=== PATIENT | female | born 1995 | race Two or more races ===

== ENCOUNTER 2019-10-30 16:37 | Emergency (ER) | payer BC ==
[2019-10-30 16:51] VITALS: BP 109/82; PULSE 71
[2019-10-30] MEDS ORDERED: HYDROmorphone 1 MG/ML Syringe IVPUSH STA (17:02)
[2019-10-30] MEDS ORDERED: Ondansetron 4 MG/2 ML SDV IVPUSH ONE ×2 (17:02→20:41)
--- NOTE | 2019-10-30 17:02 | EDM.PDOC ---
ED HPI GENERAL MEDICAL PROBLEM - General Chief Complaint: Abdominal Pain Stated Complaint: R SIDE ABD PAIN Time Seen by Provider: 10/30/19 16:48 Source of Information: Reports: Patient, RN Notes Reviewed History Limitations: Reports: No Limitations - History of Present Illness INITIAL COMMENTS - FREE TEXT/NARRATIVE: Patient is a 24-year-old female who presents to the ED for the evaluation of her right sided abdomen pain. The patient notes that she has been having some discomfort for around 2 hours, when she points to where this pain is it appears to be in her right flank area. She states when the pain started and made her sweaty and nauseous, she took a shower and the pain seemed to go away, after getting out of the shower it returned. She took 1000 mg of Tylenol for pain relief and this does not help much. She notes that the pain is stabbing and sharp in character, there is no radiation component, nothing seems to make this worse or better. She is complaining of some chills and nausea but no vomiting or diarrhea, no cough no shortness of breath, no fever, no urinary issues. Patient states she is currently on her menses and denies any chance of . Patient has had a cholecystectomy but still retains her appendix. She states she just recently set up with a primary care provider, but cannot remember her name. Right Lower Abdomen Pain Score (Numeric/FACES): 8 - Related Data Allergies Allergy/AdvReac Type Severity Reaction Status Date / Time No Known Allergies Allergy Verified 07/10/16 19:55 Home Meds: Home Meds Omeprazole 20 mg PO DAILY 07/10/16 [History] Acetaminophen/oxyCODONE [Percocet 325-5 MG] 1 each PO Q6H PRN #20 tab 10/30/19 [ Rx] Ondansetron [Zofran ODT] 4 mg PO Q8H PRN #15 tab.dis 10/30/19 [Rx] Past Medical History HEENT History: Reports: Impaired Vision, Other (See Below) Other HEENT History: wears contacts Gastrointestinal History: Reports: Cholelithiasis, Helicobacter Pylori, Pancreatitis Other Gastrointestinal History: just diagnosed with both 07/10/16 - Infectious Disease History Infectious Disease History: Reports: Chicken Pox - Past Surgical History GI Surgical History: Reports: Cholecystectomy Dermatological Surgical History: Reports: Skin Biopsy (cyst like lesion removed 10/2019 on R hand/finger) Social & Family History - Family History Family Medical History: Noncontributory - Tobacco Use Smoking Status *Q: Never Smoker Second Hand Smoke Exposure: No - Caffeine Use Caffeine Use: Reports: Coffee, Tea Other Caffeine Use: states she doesn't drink either everyday ED ROS GENERAL - Review of Systems Review Of Systems: Comprehensive ROS is negative, except as noted in HPI. ED EXAM, GI/ABD - Physical Exam Exam: See Below Exam Limited By: No Limitations General Appearance: Alert, WD/WN, No Apparent Distress (pt appears to be in mild pain, but not in any distress) Eyes: Bilateral: Normal Appearance Ears: Normal External Exam Nose: Normal Inspection Throat/Mouth: Normal Inspection, Normal Lips, Normal Teeth, Normal Gums, Normal Oropharynx, Normal Voice, No Airway Compromise Head: Atraumatic, Normocephalic Neck: Normal Inspection Respiratory/Chest: No Respiratory Distress, Lungs Clear, Normal Breath Sounds, No Accessory Muscle Use, Chest Non-Tender Cardiovascular: Normal Peripheral Pulses, Regular Rate, Rhythm, No Murmur GI/Abdominal Exam: Normal Bowel Sounds, Soft, No Distention, No Mass, Tender (R flank mainly, but midly tender in RLQ as well.) Back Exam: Normal Inspection, Full Range of Motion. No: CVA Tenderness (L), CVA Tenderness (R) Extremities: Normal Inspection, Normal Capillary Refill Neurological: Alert, Oriented, Normal Cognition, No Motor/Sensory Deficits Psychiatric: Normal Affect, Normal Mood Skin Exam: Warm, Dry, Intact, Normal Color, No Rash Course - Vital Signs Last Recorded V/S: Last Vital Signs Temp 97.6 F 10/30/19 16:48 Pulse 71 10/30/19 16:48 Resp 20 10/30/19 16:48 BP 109/82 10/30/19 16:48 Pulse Ox 100 10/30/19 16:48 - Orders/Labs/Meds Orders: Active Orders 24 hr Category Date Time Status Abdomen Pelvis w Cont [CT] Stat Exams 10/30/19 17:02 Ordered UA W/MICROSCOPIC [URIN] Stat Lab 10/30/19 17:02 Ordered Sodium Chloride 0.9% [Normal Saline] 1,000 ml Med 10/30/19 17:15 Ordered IV ASDIRECTED Sodium Chloride 0.9% [Saline Flush] Med 10/30/19 17:30 Active 10 ml FLUSH ONETIME PRN Medication Orders Sodium Chloride (Normal Saline) 1,000 mls @ 999 mls/hr IV ASDIRECTED LORENZA Last Admin: 10/30/19 17:22 Dose: 999 mls/hr Sodium Chloride (Saline Flush) 10 ml FLUSH ONETIME PRN PRN Reason: Keep Vein Open Last Admin: 10/30/19 19:02 Dose: 10 ml Labs: Laboratory Tests 10/30/19 10/30/19 10/30/19 Range/Units 17:00 17:00 17:00 WBC 13.18 H (3.98-10.04) K/mm3 RBC 5.03 (3.98-5.22) M/mm3 Hgb 14.3 D (11.2-15.7) gm/dl Hct 43.9 (34.1-44.9) % MCV 87.3 D (79.4-94.8) fl MCH 28.4 (25.6-32.2) pg MCHC 32.6 (32.2-35.5) g/dl RDW Std Deviation 43.1 (36.4-46.3) fL Plt Count 311 (182-369) K/mm3 MPV 8.4 L (9.4-12.3) fl Neutrophils % (Manual) 73 H (40-60) % Band Neutrophils % 0 (0-10) % Lymphocytes % (Manual) 19 L (20-40) % Atypical Lymphs % 0 % Monocytes % (Manual) 8 (2-10) % Eosinophils % (Manual) 0 L (0.7-5.8) % Basophils % (Manual) 0 L (0.1-1.2) Toxic Granulation 2+ moderate Platelet Estimate Adequate Plt Morphology Comment Normal RBC Morph Comment Normal Sodium 139 (136-145) mEq/L Potassium 3.6 (3.5-5.1) mEq/L Chloride 104 (98-107) mEq/L Carbon Dioxide 27 (21-32) mEq/L Anion Gap 11.6 (5-15) BUN 12 (7-18) mg/dL Creatinine 1.0 (0.55-1.02) mg/dL Est Cr Clr Drug Dosing TNP Estimated GFR (MDRD) > 60 (>60) mL/min BUN/Creatinine Ratio 12.0 L (14-18) Glucose 111 H (74-106) mg/dL Calcium 8.8 (8.5-10.1) mg/dL Total Bilirubin 0.4 (0.2-1.0) mg/dL AST 17 (15-37) U/L ALT 31 (14-59) U/L Alkaline Phosphatase 69 (46-116) U/L C-Reactive Protein 1.1 H* (<1.0) mg/dL Total Protein 7.8 (6.4-8.2) g/dl Albumin 3.6 (3.4-5.0) g/dl Globulin 4.2 gm/dL Albumin/Globulin Ratio 0.9 L (1-2) Lipase 183 (73-393) U/L HCG, Qual (NEGATIVE) 10/30/19 Range/Units 17:00 WBC (3.98-10.04) K/mm3 RBC (3.98-5.22) M/mm3 Hgb (11.2-15.7) gm/dl Hct (34.1-44.9) % MCV (79.4-94.8) fl MCH (25.6-32.2) pg MCHC (32.2-35.5) g/dl RDW Std Deviation (36.4-46.3) fL Plt Count (182-369) K/mm3 MPV (9.4-12.3) fl Neutrophils % (Manual) (40-60) % Band Neutrophils % (0-10) % Lymphocytes % (Manual) (20-40) % Atypical Lymphs % % Monocytes % (Manual) (2-10) % Eosinophils % (Manual) (0.7-5.8) % Basophils % (Manual) (0.1-1.2) Toxic Granulation Platelet Estimate Plt Morphology Comment RBC Morph Comment Sodium (136-145) mEq/L Potassium (3.5-5.1) mEq/L Chloride (98-107) mEq/L Carbon Dioxide (21-32) mEq/L Anion Gap (5-15) BUN (7-18) mg/dL Creatinine (0.55-1.02) mg/dL Est Cr Clr Drug Dosing Estimated GFR (MDRD) (>60) mL/min BUN/Creatinine Ratio (14-18) Glucose (74-106) mg/dL Calcium (8.5-10.1) mg/dL Total Bilirubin (0.2-1.0) mg/dL AST (15-37) U/L ALT (14-59) U/L Alkaline Phosphatase (46-116) U/L C-Reactive Protein (<1.0) mg/dL Total Protein (6.4-8.2) g/dl Albumin (3.4-5.0) g/dl Globulin gm/dL Albumin/Globulin Ratio (1-2) Lipase (73-393) U/L HCG, Qual Negative (NEGATIVE) Meds: Medications Generic Name Dose Route Start Last Admin Trade Name Freq PRN Reason Stop Dose Admin Sodium Chloride 1,000 mls @ 999 mls/hr 10/30/19 17:15 10/30/19 17:22 Normal Saline IV 999 mls/hr ASDIRECTED LORENZA Administration Sodium Chloride 10 ml 10/30/19 17:30 10/30/19 19:02 Saline Flush FLUSH 10 ml ONETIME PRN Administration Keep Vein Open Discontinued Medications Generic Name Dose Route Start Last Admin Trade Name Freq PRN Reason Stop Dose Admin Diatrizoate Meglum/Diatrizoate Sod 40 ml 10/30/19 17:30 10/30/19 19:03 Gastrografin 37% PO 10/30/19 17:31 20 ml ONETIME ONE Administration Hydromorphone HCl 1 mg 10/30/19 17:02 10/30/19 17:22 Dilaudid IVPUSH 10/30/19 17:03 1 mg ONETIME STA Administration Hydromorphone HCl 0.5 mg 10/30/19 17:31 10/30/19 17:37 Dilaudid IVPUSH 10/30/19 17:32 0.5 mg ONETIME ONE Administration Iopamidol 100 ml 10/30/19 17:30 10/30/19 19:02 Isovue-300 (61%) IVPUSH 10/30/19 17:31 100 ml ONETIME ONE Administration Ondansetron HCl 4 mg 10/30/19 17:02 10/30/19 17:23 Zofran IVPUSH 10/30/19 17:03 4 mg ONETIME ONE Administration Tamsulosin HCl 0.4 mg 10/30/19 19:54 Flomax PO 10/30/19 19:55 ONETIME ONE - Radiology Interpretation Free Text/Narrative:: CT abdomen and pelvis Technique: Multiple axial sections were obtained from above the dome of the diaphragm inferiorly through the pubic symphysis. Intravenous contrast was utilized. Oral contrast has been given. Delayed images were also obtained through the bladder. Comparison: Prior CT abdomen and pelvis study of 07/11/16. Findings: Right ureter is mildly prominent. This is due to a small obstructing stone within the distal right ureter occurring at the UVJ and measuring approximately 2.5 mm. No additional ureteral calculi are seen. Kidneys show several equivocal small calcifications possibly due to early nonobstructing calculi. Visualized lung bases show nothing acute. Liver shows no focal parenchymal abnormality. Spleen appears within normal limits. Adrenal glands show no nodule. Aorta shows no aneurysm. Pancreas is within normal limits. Surgical clips are seen from prior cholecystectomy. No retroperitoneal adenopathy or mesenteric abnormalities are seen. No pelvic mass or adenopathy is identified. Appendix is felt to be visualized and is normal in size. Bone window settings were reviewed. No acute osseous finding is appreciated. Impression: 1. 2.5 mm obstructing stone within the distal right ureter at the UVJ. 2. Equivocal small calcifications within both kidneys possibly due to early nonobstructing calculi. 3. No other acute finding is appreciated on CT study of the abdomen and pelvis. - Re-Assessments/Exams Free Text/Narrative Re-Assessment/Exam: 10/30/19 17:13 Patient presents to the ED for evaluation of her right-sided abdominal pain. Have ordered some baseline labs, nausea medication, pain medication, abdomen pelvis CT with oral and IV contrast for evaluation of her pain. 10/30/19 19:23 Laboratory evaluation demonstrates a mildly elevated white count at 13,000, metabolic panel essentially within normal limits, CRP mildly elevated at 1.1, she did have her abdomen pelvis CT done, official radiology read is pending. RN did tell me that the patient was acting "loopy" after she got back from the CT, the RN appreciated that the patient was staring through her, she has gotten a total of 1.5 mg of Dilaudid, this could be attributed to the pain medication. She was reassessed at bedside, and it is likely that the pain medications are causing some these issues. She will be monitored in the ER to make sure that she is feeling a little bit better, before discharge. 10/30/19 19:56 [address] read on the CT is done, demonstrates a 2.5 mm obstructing stone within the right UVJ which is likely the source of her pain. Have ordered 0.4 mg of Flomax at this time, patient has gotten 1 bag of fluids which should help push the stone through. She has not been able to give us a urine sample at this time. We will collect urine if she is able to provide us with one otherwise we will treat her for the kidney stone and discharge her home when she is a little less sleepy. Departure - Departure Time of Disposition: 20:03 Disposition: Home, Self-Care 01 Condition: Good Clinical Impression: Kidney stone on right side - Discharge Information *PRESCRIPTION DRUG MONITORING PROGRAM REVIEWED*: No *COPY OF PRESCRIPTION DRUG MONITORING REPORT IN PATIENT NOEMI: No Instructions: Dietary Guidelines to Help Prevent Kidney Stones, Kidney Stones, [id number] Referrals: PCP,None [Primary Care Provider] - Forms: ED Department Discharge Additional Instructions: You were evaluated in the ER today for your right flank pain. A CT was done at this ER visit, this demonstrated a 2.5mm stone at the right UVJ. You have been given a strainer, please use every time you use the bathroom to make sure that the kidney stone has passed. Recommend that you increase your oral fluid intake to try to help the stone pass. You were given IV pain meds and IV fluids in the ER to help get the stone to pass, and help provide pain relief. This seemed to give you fairly good relief of your pain. You have been given a few tablets of pain medication, please take as prescribed. These medications are highly addictive, please take as few as you need to. These medications also may cause constipation, please take a stool softener like MiraLAX while taking these medications. If your pain is not much better in a week's time, you may need to follow up with your primary care physician, for a possible urology referral. Please return to the ED if your symptoms change or worsen. Sepsis Event Note - Evaluation Sepsis Screening Result: No Definite Risk - Focused Exam Vital Signs: Vital Signs Temp Pulse Resp BP Pulse Ox 10/30/19 16:48 97.6 F 71 20 109/82 100 Date Exam was Performed: 10/30/19 Time Exam was Performed: 20:02 - My Orders Last 24 Hours: My Active Orders 10/30/19 17:02 Abdomen Pelvis w Cont [CT] Stat UA W/MICROSCOPIC [URIN] Stat 10/30/19 17:15 Sodium Chloride 0.9% [Normal Saline] 1,000 ml IV ASDIRECTED 10/30/19 17:30 Sodium Chloride 0.9% [Saline Flush] 10 ml FLUSH ONETIME PRN - Assessment/Plan Last 24 Hours: My Active Orders 10/30/19 17:02 Abdomen Pelvis w Cont [CT] Stat UA W/MICROSCOPIC [URIN] Stat 10/30/19 17:15 Sodium Chloride 0.9% [Normal Saline] 1,000 ml IV ASDIRECTED 10/30/19 17:30 Sodium Chloride 0.9% [Saline Flush] 10 ml FLUSH ONETIME PRN
[2019-10-30] MEDS ORDERED: Sodium Chloride 0.9% 1,000 ML IV SCH (17:15)
[2019-10-30] MEDS ORDERED: Iopamidol 612 MG/ML 100 ML Bottle IVPUSH ONE (17:30)
[2019-10-30] MEDS ORDERED: Diatrizoate Meglumine/Diatrizoate Sodium 37% 120 ML Bottle PO ONE (17:30)
[2019-10-30] MEDS ORDERED: Sodium Chloride 0.9% 10 ML Syringe FLUSH PRN (17:30)
[2019-10-30] MEDS ORDERED: HYDROmorphone 0.5 MG/0.5 ML Syringe IVPUSH ONE (17:31)
[2019-10-30] MEDS ORDERED: Tamsulosin 0.4 MG Cap.ER PO ONE (19:54)
--- NOTE | 2019-10-30 20:21 | CT ---
CT abdomen and pelvis Technique: Multiple axial sections were obtained from above the dome of the diaphragm inferiorly through the pubic symphysis. Intravenous contrast was utilized. Oral contrast has been given. Delayed images were also obtained through the bladder. Comparison: Prior CT abdomen and pelvis study of 07/11/16. Findings: Right ureter is mildly prominent. This is due to a small obstructing stone within the distal right ureter occurring at the UVJ and measuring approximately 2.5 mm. No additional ureteral calculi are seen. Kidneys show several equivocal small calcifications possibly due to early nonobstructing calculi. Visualized lung bases show nothing acute. Liver shows no focal parenchymal abnormality. Spleen appears within normal limits. Adrenal glands show no nodule. Aorta shows no aneurysm. Pancreas is within normal limits. Surgical clips are seen from prior cholecystectomy. No retroperitoneal adenopathy or mesenteric abnormalities are seen. No pelvic mass or adenopathy is identified. Appendix is felt to be visualized and is normal in size. Bone window settings were reviewed. No acute osseous finding is appreciated. Impression: 1. 2.5 mm obstructing stone within the distal right ureter at the UVJ. 2. Equivocal small calcifications within both kidneys possibly due to early nonobstructing calculi. 3. No other acute finding is appreciated on CT study of the abdomen and pelvis. Diagnostic code #3 This report was dictated in MDT
== END 2019-10-30 21:05 | disposition home or self-care (01) ==
LOC: JD.ED 16:37
DX: N20.2 Calculus of kidney with calculus of ureter (principal); Z90.89 Acquired absence of other organs
CPT/HCPCS: 36415; 74177; 80053; 81001; 83690; 84703; 85007; 85027; 86140; 96374; 96375; 96376; 99284; A9270; J1170; J2405; J7030; Q9963; Q9967

== ENCOUNTER 2019-10-31 19:20 | Emergency (ER) | payer BC ==
[2019-10-31 19:33] VITALS: BP 126/96; PULSE 79
[2019-10-31] MEDS ORDERED: Acetaminophen/oxyCODONE 325-5 MG Tab PO ONE (19:41)
[2019-10-31] MEDS ORDERED: Ketorolac 60 MG/2 ML SDV IM ONE (19:41)
--- NOTE | 2019-10-31 19:43 | EDM.PDOC ---
ED HPI GENERAL MEDICAL PROBLEM - General Chief Complaint: Flank Pain Stated Complaint: RIGHT SIDE PAIN Time Seen by Provider: 10/31/19 19:28 Source of Information: Reports: Patient History Limitations: Reports: No Limitations - History of Present Illness INITIAL COMMENTS - FREE TEXT/NARRATIVE: Patient is a 24-year-old female who presents to the emergency department with complaints of continued right-sided flank pain. She was seen in this emergency department last night for the same complaint. She was diagnosed with a 2.4 mm kidney stone. Patient was discharged home with prescription for Percocet 1 tab every 6 hours. She states she took a tablet this morning and then another approximately 3 hours ago. She returns to the ER because she continues to have pain. She states the nausea that she was experiencing yesterday has resolved. She has not taken any [id number] ibuprofen or Tylenol in addition to the Percocet. She does not have a history of kidney stones. States this is her first. Right Posterior Flank Pain Score (Numeric/FACES): 8 - Related Data Allergies Allergy/AdvReac Type Severity Reaction Status Date / Time No Known Allergies Allergy Verified 10/31/19 19:33 Home Meds: Home Meds Acetaminophen/oxyCODONE [Percocet 325-5 MG] 1 each PO Q6H PRN #20 tab 10/30/19 [ Rx] Ondansetron [Zofran ODT] 4 mg PO Q8H PRN #15 tab.dis 10/30/19 [Rx] Past Medical History - Past Health History Medical/Surgical History: Denies Medical/Surgical History HEENT History: Reports: Impaired Vision, Other (See Below) Other HEENT History: wears contacts Gastrointestinal History: Reports: Cholelithiasis, Helicobacter Pylori, Pancreatitis Other Gastrointestinal History: just diagnosed with both 07/10/16 - Infectious Disease History Infectious Disease History: Reports: Chicken Pox - Past Surgical History GI Surgical History: Reports: Cholecystectomy Dermatological Surgical History: Reports: Skin Biopsy Social & Family History - Family History Family Medical History: Noncontributory - Tobacco Use Smoking Status *Q: Never Smoker - Caffeine Use Caffeine Use: Reports: Tea Other Caffeine Use: states she doesn't drink either everyday - Recreational Drug Use Recreational Drug Use: No ED ROS GENERAL - Review of Systems Review Of Systems: Comprehensive ROS is negative, except as noted in HPI. ED EXAM, RENAL/ - Physical Exam Exam: See Below Exam Limited By: No Limitations General Appearance: Alert, WD/WN, Mild Distress Respiratory/Chest: No Respiratory Distress, Lungs Clear, Normal Breath Sounds, No Accessory Muscle Use, Chest Non-Tender Cardiovascular: Normal Peripheral Pulses, Regular Rate, Rhythm, No Edema, No Gallop, No JVD, No Murmur, No Rub Back Exam: Normal Inspection, Full Range of Motion, CVA Tenderness (R) Neurological: Alert, Oriented, CN II-XII Intact, Normal Cognition, Normal Gait, Normal Reflexes, No Motor/Sensory Deficits Psychiatric: Normal Affect, Normal Mood Skin Exam: Warm, Dry, Intact, Normal Color, No Rash Course - Vital Signs Last Recorded V/S: Last Vital Signs Temp 96.9 F 10/31/19 19: Pulse 79 10/31/19 19: Resp 18 10/31/19 19: BP 126/96 H 10/31/19 19: Pulse Ox 98 10/31/19 19:27 - Orders/Labs/Meds Meds: Medications Discontinued Medications Generic Name Dose Route Start Last Admin Trade Name René PRN Reason Stop Dose Admin Ketorolac Tromethamine 60 mg 10/31/19 19:41 10/31/19 19:47 Toradol IM 10/31/19 19:42 60 mg ONETIME ONE Administration Oxycodone/Acetaminophen 1 tab 10/31/19 19:41 10/31/19 19:47 Percocet 325-5 Mg PO 10/31/19 19:42 1 tab ONETIME ONE Administration - Re-Assessments/Exams Free Text/Narrative Re-Assessment/Exam: Patient has a known diagnosis of right-sided kidney stone. Do not feel that any further work-up is needed at this time. I will give her Toradol 60 mg IM as well as 1 Percocet. 10/31/19 20:29 Patient is feeling much better after the Toradol and Percocet. Discussed with her that I would recommend that she use ibuprofen 600 mg every 6 hours routinely until the stone passes. For pain not relieved by ibuprofen she may use 1-2 Percocets every 6 hours. She is in agreement with this plan. Discharge instructions as documented. Departure - Departure Time of Disposition: 20:30 Disposition: Home, Self-Care 01 Condition: Good Clinical Impression: Kidney stone on right side - Discharge Information *PRESCRIPTION DRUG MONITORING PROGRAM REVIEWED*: No *COPY OF PRESCRIPTION DRUG MONITORING REPORT IN PATIENT NOEMI: No Instructions: Flank Pain, Adult, [id number], Kidney Stones Referrals: PCP,None [Primary Care Provider] - Forms: ED Department Discharge Additional Instructions: You were seen in the emergency department tonight for ongoing right-sided flank pain due to your kidney stone. While in the ER you received an injection of Toradol as well as 1 Percocet. This did improve your symptoms. As we discussed , I would recommend that you take ibuprofen 600 mg every 6 hours until you pass the kidney stone. For pain not relieved by the ibuprofen, you may use 1-2 Percocet every 6 hours as previously prescribed. Apply a hot pack to your right back may also be helpful. If your symptoms should worsen or you experience any new symptoms of concern, please not hesitate to return to the emergency department. Sepsis Event Note - Evaluation Sepsis Screening Result: No Definite Risk - Focused Exam Vital Signs: Vital Signs Temp Pulse Resp BP Pulse Ox 10/31/19 19:27 96.9 F 79 18 126/96 H 98 Date Exam was Performed: 10/31/19 Time Exam was Performed: 20:29
== END 2019-10-31 20:36 | disposition home or self-care (01) ==
LOC: JD.ED 19:20
DX: N20.0 Calculus of kidney (principal); Z90.49 Acquired absence of other specified parts of digestive tract
CPT/HCPCS: 96372; 99283; A9270; J1885

== ENCOUNTER 2020-08-03 17:51 | Emergency (ER) | payer BC ==
[2020-08-03 17:59] VITALS: BP 126/75; PULSE 139
[2020-08-03] MEDS ORDERED: Sodium Chloride 0.9% 10 ML Syringe FLUSH PRN (18:42)
[2020-08-03] MEDS ORDERED: Ondansetron 4 MG/2 ML SDV IVPUSH ONE (19:08)
[2020-08-03] MEDS ORDERED: HYDROmorphone 0.5 MG/0.5 ML Syringe IVPUSH ONE (19:08)
[2020-08-03] MEDS ORDERED: Sodium Chloride 0.9% 1,000 ML IV ONE (19:08)
--- NOTE | 2020-08-03 19:09 | EDM.PDOC ---
ED HPI GENERAL MEDICAL PROBLEM - General Chief Complaint: ENT Problem Stated Complaint: HEADACHE/FEVER/CHILLS Time Seen by Provider: 08/03/20 18:21 Source of Information: Reports: Patient History Limitations: Reports: No Limitations - History of Present Illness INITIAL COMMENTS - FREE TEXT/NARRATIVE: 24-year-old female presents to the emergency department complaints of sore thr oat and severe left ear pain. Patient states she was seen at the [facility] about 4 to 5 days ago and was diagnosed with strep throat and then started on amoxicillin 500 mg twice daily. Patient states she has been taking this medication however over the last day or so her symptoms have become more severe. She states that she was unable to eat or drink anything at all today. She has also become nauseated. She developed a fever at home as high as 103. Patient states she also has developed a headache and chills today with associated severe left ear pain. Throat Pain Score (Numeric/FACES): 7 - Related Data Allergies Allergy/AdvReac Type Severity Reaction Status Date / Time No Known Allergies Allergy Verified 10/31/19 19:33 Home Meds: Home Meds Acetaminophen/oxyCODONE [Percocet 325-5 MG] 1 each PO Q6H PRN #20 tab 10/30/19 [Rx] Ondansetron [Zofran ODT] 4 mg PO Q8H PRN #15 tab.dis 10/30/19 [Rx] Past Medical History - Past Health History Medical/Surgical History: Denies Medical/Surgical History HEENT History: Reports: Impaired Vision, Other (See Below) Other HEENT History: wears contacts Gastrointestinal History: Reports: Cholelithiasis, Helicobacter Pylori, Pancreatitis Other Gastrointestinal History: just diagnosed with both 07/10/16 - Infectious Disease History Infectious Disease History: Reports: Chicken Pox - Past Surgical History HEENT Surgical History: Reports: None GI Surgical History: Reports: Cholecystectomy Dermatological Surgical History: Reports: Skin Biopsy Social & Family History - Family History Family Medical History: No Pertinent Family History - Tobacco Use Tobacco Use Status *Q: Never Tobacco User - Caffeine Use Caffeine Use: Reports: Coffee Other Caffeine Use: states she doesn't drink either everyday - Recreational Drug Use Recreational Drug Use: No ED ROS ENT - Review of Systems Review Of Systems: See Below Constitutional: Reports: Fever, Chills, Malaise, Weakness, Fatigue, Decreased Appetite HEENT: Reports: Ear Pain (Left), Throat Pain Respiratory: Reports: No Symptoms Cardiovascular: Reports: No Symptoms Endocrine: Reports: No Symptoms GI/Abdominal: Reports: Decreased Appetite, Nausea. Denies: Abdominal Pain, Diarrhea, Vomiting : Reports: No Symptoms Musculoskeletal: Reports: Muscle Pain (Generalized) Skin: Reports: No Symptoms Neurological: Reports: Headache Psychiatric: Reports: No Symptoms Hematologic/Lymphatic: Reports: No Symptoms Immunologic: Reports: No Symptoms ED EXAM, ENT - Physical Exam Exam: See Below Exam Limited By: No Limitations General Appearance: WD/WN, Lethargic, Moderate Distress, Obese Eye Exam: Bilateral Eye: PERRL Ears: Normal External Exam, Normal Canal, Hearing Grossly Normal, TM Bulging (Left), TM Erythema, TM Fluid (Left). No: Normal TMs Nose: Normal Inspection Mouth/Throat: Normal Lips, Pharyngeal Erythema, Throat Pain, Tonsillar Erythema, Tonsillar Exudates. No: Tonsillar Swelling Head: Atraumatic, Normocephalic Neck: Normal Inspection, Supple, Non-Tender, Full Range of Motion Respiratory/Chest: No Respiratory Distress, Lungs Clear, Normal Breath Sounds, No Accessory Muscle Use, Chest Non-Tender Cardiovascular: Normal Peripheral Pulses, Regular Rate, Rhythm, No Edema, No Murmur GI/Abdominal: Normal Bowel Sounds, Soft, Non-Tender, No Distention (Female) Exam: Deferred Rectal (Female) Exam: Deferred Back: Normal Inspection, Full Range of Motion Extremities: Normal Inspection, Normal Range of Motion, Non-Tender, No Pedal Edema, Normal Capillary Refill Neurological: Alert, Oriented, Normal Cognition Psychiatric: Normal Affect, Normal Mood Skin: Warm, Dry, Intact, Normal Color, No Rash Lymphatic: Adenopathy (Left tonsillar) Course - Vital Signs Text/Narrative:: 24-year-old female who presents to the emergency department complaints of left ear pain and severe sore throat with associated headache, nausea, fever, chills, generalized body aches and decreased appetite. Patient was diagnosed with strep throat 4 to 5 days ago at [facility] and was started on amoxicillin 500 mg twice daily. Patient states over the past day or 2 she has started to feel significantly worse to the point that she has absolutely no appetite today. Upon assessment patient has a muffled voice. Left ear is examined and she has bulging tympanic membranes with erythema. Right ear is unremarkable. Patient's throat is erythematous and has peritonsillar edema with exudates noted. Significant tonsillar swelling is not appreciated. Patient has swollen tonsillar lymph nodes on the left side that are exquisitely painful to palpation. Lungs are clear. I have ordered a full septic work-up on this patient. Patient will also receive a liter of IV fluids as she is very likely dehydrated due to the infection and inability to eat or drink today. Last Recorded V/S: Last Vital Signs Temp 99.5 F 08/03/20 17:55 Pulse 139 H 08/03/20 17:55 Resp 16 08/03/20 17:55 BP 126/75 08/03/20 17:55 Pulse Ox 95 08/03/20 17:55 - Orders/Labs/Meds Orders: Active Orders 24 hr Category Date Time Status Chest 2V [CR] Stat Exams 08/03/20 18:42 Taken CULTURE BLOOD [BC] Stat Lab 08/03/20 19:05 Received CULTURE BLOOD [BC] Stat Lab 08/03/20 19:15 Received CULTURE URINE [RM] Stat Lab 08/03/20 19:34 Received Sodium Chloride 0.9% [Saline Flush] Med 08/03/20 18:42 Active 10 ml FLUSH ASDIRECTED PRN Blood Culture x2 Reflex Set [OM.PC] Stat Oth 08/03/20 18:42 Ordered Saline Lock Insert [OM.PC] Stat Oth 08/03/20 18:42 Ordered Medication Orders Sodium Chloride (Saline Flush) 10 ml FLUSH ASDIRECTED PRN PRN Reason: Keep Vein Open Last Admin: 08/03/20 19:32 Dose: 10 ml Documented by: LISA Labs: Laboratory Tests 08/03/20 08/03/20 08/03/20 Range/Units 19:05 19:05 19:05 WBC 9.63 (3.98-10.04) K/mm3 RBC 5.04 (3.98-5.22) M/mm3 Hgb 14.2 (11.2-15.7) gm/dl Hct 44.5 (34.1-44.9) % MCV 88.3 (79.4-94.8) fl MCH 28.2 (25.6-32.2) pg MCHC 31.9 L (32.2-35.5) g/dl RDW Std Deviation 46.7 H (36.4-46.3) fL Plt Count 295 (182-369) K/mm3 MPV 8.5 L (9.4-12.3) fl Neutrophils % (Manual) 57 (40-60) % Band Neutrophils % 2 (0-10) % Lymphocytes % (Manual) 30 (20-40) % Atypical Lymphs % 0 % Monocytes % (Manual) 11 H (2-10) % Eosinophils % (Manual) 0 L (0.7-5.8) % Basophils % (Manual) 0 L (0.1-1.2) Platelet Estimate Adequate RBC Morph Comment Normal PT 11.1 (9.7-12.0) SECONDS INR 1.04 Sodium 141 (136-145) mEq/L Potassium 3.5 (3.5-5.1) mEq/L Chloride 101 (98-107) mEq/L Carbon Dioxide 26 (21-32) mEq/L Anion Gap 17.5 H (5-15) BUN 11 (7-18) mg/dL Creatinine 0.9 (0.55-1.02) mg/dL Est Cr Clr Drug Dosing 91.79 mL/min Estimated GFR (MDRD) > 60 (>60) mL/min BUN/Creatinine Ratio 12.2 L (14-18) Glucose 89 (74-106) mg/dL Lactic Acid (0.4-2.0) mmol/L Calcium 9.0 (8.5-10.1) mg/dL Total Bilirubin 0.4 (0.2-1.0) mg/dL AST 30 (15-37) U/L ALT 38 (14-59) U/L Alkaline Phosphatase 76 (46-116) U/L C-Reactive Protein 8.2 H* (<1.0) mg/dL Total Protein 8.9 H (6.4-8.2) g/dl Albumin 3.8 (3.4-5.0) g/dl Globulin 5.1 gm/dL Albumin/Globulin Ratio 0.8 L (1-2) Urine Color (Yellow) Urine Appearance (Clear) Urine pH (5.0-8.0) Ur Specific [place] (1.005-1.030) Urine Protein (Negative) Urine Glucose (UA) (Negative) Urine Ketones (Negative) Urine Occult Blood (Negative) Urine Nitrite (Negative) Urine Bilirubin (Negative) Urine Urobilinogen (0.2-1.0) Ur Leukocyte Esterase (Negative) Urine RBC (0-5) /hpf Urine WBC (0-5) /hpf Ur Squamous Epith Cells (0-5) /hpf Urine Bacteria (FEW) /hpf Urine Mucus (FEW) /hpf Monoscreen (NEGATIVE) 08/03/20 08/03/20 08/03/20 Range/Units 19:05 19:05 19:34 WBC (3.98-10.04) K/mm3 RBC (3.98-5.22) M/mm3 Hgb (11.2-15.7) gm/dl Hct (34.1-44.9) % MCV (79.4-94.8) fl MCH (25.6-32.2) pg MCHC (32.2-35.5) g/dl RDW Std Deviation (36.4-46.3) fL Plt Count (182-369) K/mm3 MPV (9.4-12.3) fl Neutrophils % (Manual) (40-60) % Band Neutrophils % (0-10) % Lymphocytes % (Manual) (20-40) % Atypical Lymphs % % Monocytes % (Manual) (2-10) % Eosinophils % (Manual) (0.7-5.8) % Basophils % (Manual) (0.1-1.2) Platelet Estimate RBC Morph Comment PT (9.7-12.0) SECONDS INR Sodium (136-145) mEq/L Potassium (3.5-5.1) mEq/L Chloride (98-107) mEq/L Carbon Dioxide (21-32) mEq/L Anion Gap (5-15) BUN (7-18) mg/dL Creatinine (0.55-1.02) mg/dL Est Cr Clr Drug Dosing mL/min Estimated GFR (MDRD) (>60) mL/min BUN/Creatinine Ratio (14-18) Glucose (74-106) mg/dL Lactic Acid 1.0 (0.4-2.0) mmol/L Calcium (8.5-10.1) mg/dL Total Bilirubin (0.2-1.0) mg/dL AST (15-37) U/L ALT (14-59) U/L Alkaline Phosphatase (46-116) U/L C-Reactive Protein (<1.0) mg/dL Total Protein (6.4-8.2) g/dl Albumin (3.4-5.0) g/dl Globulin gm/dL Albumin/Globulin Ratio (1-2) Urine Color Yellow (Yellow) Urine Appearance Slt cloudy H (Clear) Urine pH 8.0 (5.0-8.0) Ur Specific [place] 1.025 (1.005-1.030) Urine Protein 1+ H (Negative) Urine Glucose (UA) Negative (Negative) Urine Ketones 3+ H (Negative) Urine Occult Blood 2+ H (Negative) Urine Nitrite Negative (Negative) Urine Bilirubin 1+ H (Negative) Urine Urobilinogen 4.0 H (0.2-1.0) Ur Leukocyte Esterase 1+ H (Negative) Urine RBC 40-50 H (0-5) /hpf Urine WBC 30-40 H (0-5) /hpf Ur Squamous Epith Cells 5-10 H (0-5) /hpf Urine Bacteria Few (FEW) /hpf Urine Mucus Moderate H (FEW) /hpf Monoscreen Negative (NEGATIVE) Meds: Medications Generic Name Dose Route Start Last Admin Trade Name Freq PRN Reason Stop Dose Admin Sodium Chloride 10 ml 08/03/20 18:42 08/03/20 19:32 Saline Flush FLUSH 10 ml ASDIRECTED PRN Administration Keep Vein Open Discontinued Medications Generic Name Dose Route Start Last Admin Trade Name Freq PRN Reason Stop Dose Admin Hydromorphone HCl 0.5 mg 08/03/20 19:08 08/03/20 19:31 Dilaudid IVPUSH 08/03/20 19:09 0.5 mg ONETIME ONE Administration Sodium Chloride 1,000 mls @ 999 mls/hr 08/03/20 19:08 08/03/20 19:30 Normal Saline IV 08/03/20 20:08 999 mls/hr ONETIME ONE Administration Ceftriaxone Sodium 1 gm/ 100 mls @ 200 mls/hr 08/03/20 20:04 08/03/20 20:20 Sodium Chloride IV 08/03/20 20:33 200 mls/hr ONETIME ONE Administration Ondansetron HCl 4 mg 08/03/20 19:08 08/03/20 19:30 Zofran IVPUSH 08/03/20 19:09 4 mg ONETIME ONE Administration - Radiology Interpretation Free Text/Narrative:: Nothing acute is appreciated on chest xray. - Re-Assessments/Exams Free Text/Narrative Re-Assessment/Exam: 08/03/20 20:07 Labs reveal WBC 9.63, hemoglobin 14.2, hematocrit 44.5, chemistry reveals a sodium of 141, potassium 3.5, anion gap 17.5, BUN 11, creatinine 0.9, lactic acid 1.0, C-reactive protein 8.2 Urinalysis reveals urine appearance slightly cloudy, urine protein 1+, urine ketones 3+, urine occult blood 2+, urine nitrite negative, urine bilirubin 1+, urine urobilinogen 4.0, urine leukocyte esterase 1+, urine RBC 40-50, urine WBC 30-40, urine squamous epithelial cells 5-10, urine mucus moderate For the patient to receive 1 g of Rocephin IV. 08/03/20 21:27 Pt is negative for Influenza A & B and negative for mono. Pt states that she feels much better and is asking to go home. I will discharge her to home with recommendation that she continue taking her amoxicillin. This also will cover for her left otitis media. I will follow up with her urine cultures on tuesday. Departure - Departure Time of Disposition: 21:29 Disposition: Home, Self-Care 01 Condition: Good Clinical Impression: Otitis media Qualifiers: Otitis media type: unspecified Chronicity: acute Qualified Code(s): H66.90 - Otitis media, unspecified, unspecified ear Pharyngitis Qualifiers: Pharyngitis/tonsillitis etiology: unspecified etiology Qualified Code(s): J02.9 - Acute pharyngitis, unspecified - Discharge Information Instructions: Otitis Media, Adult, [id number] Referrals: PCP,None [Primary Care Provider] - Forms: ED Department Discharge Additional Instructions: You were seen in the emergency department this evening with complaints of throat pain, left ear pain, generalized body aches and inability to eat or drink and fever. Labs did not reveal any source of infection. Influenza a and B were negative, your mono screen was negative. Your urinalysis did show some signs of infection however the urine sample did look contaminated. I will wait to see what the cultures show and I should have these results on Tuesday. You did receive 1 dose of IV antibiotics while in the ER. Continue to take your amoxicillin as previously prescribed and this will also help to treat your ear infection. Drink lots of fluids. Get lots of rest. Take Tylenol 650 mg alternating with ibuprofen 600 mg every 4 hours for the next 24 hours and this should help with the discomfort and inflammation of your throat and ear. I have given you a prescription for Percocet. You can take 1 tab every 6 hours as needed for severe pain however keep in mind that this does have Tylenol in it. Should you need to take it skip taking the Tylenol. You should start to feel better in the next 24 to 48 hours however should you feel worse recommend follow-up with your primary care provider. Sepsis Event Note (ED) - Evaluation Sepsis Screening Result: Possible Sepsis Risk - Focused Exam Vital Signs: Vital Signs Temp Pulse Resp BP Pulse Ox 08/03/20 17:55 99.5 F 139 H 16 126/75 95 - My Orders Last 24 Hours: My Active Orders 08/03/20 18:42 Chest 2V [CR] Stat Sodium Chloride 0.9% [Saline Flush] 10 ml FLUSH ASDIRECTED PRN Blood Culture x2 Reflex Set [OM.PC] Stat Saline Lock Insert [OM.PC] Stat 08/03/20 19:05 CULTURE BLOOD [BC] Stat 08/03/20 19:15 CULTURE BLOOD [BC] Stat 08/03/20 19:34 CULTURE URINE [RM] Stat - Assessment/Plan Last 24 Hours: My Active Orders 08/03/20 18:42 Chest 2V [CR] Stat Sodium Chloride 0.9% [Saline Flush] 10 ml FLUSH ASDIRECTED PRN Blood Culture x2 Reflex Set [OM.PC] Stat Saline Lock Insert [OM.PC] Stat 08/03/20 19:05 CULTURE BLOOD [BC] Stat 08/03/20 19:15 CULTURE BLOOD [BC] Stat 08/03/20 19:34 CULTURE URINE [RM] Stat
[2020-08-03] MEDS ORDERED: cefTRIAXone 1 GM in Sodium Chloride 0.9% 100 ML IV ONE (20:04)
--- NOTE | 2020-08-04 06:39 | CR ---
Chest: 2 views of the chest were obtained. Comparison: No prior chest imaging is available. Heart size and mediastinum are normal. Lungs are clear with no acute parenchymal change. Bony structures show slight scoliosis. Impression: 1. Nothing acute is appreciated on 2 view chest x-ray. Diagnostic code #2
== END 2020-08-03 21:46 | disposition home or self-care (01) ==
LOC: JD.ED 17:51
DX: J02.9 Acute pharyngitis, unspecified (principal); H66.92 Otitis media, unspecified, left ear
CPT/HCPCS: 36415; 71046; 80053; 81001; 83605; 85007; 85027; 85610; 86140; 86308; 87040; 87086; 87804; 96365; 96375; 99283; J0696; J1170; J2405; J7030